=== PATIENT | female | born 1960 | race Caucasian/White ===

== ENCOUNTER 2016-08-11 21:21 | Emergency (ER) | payer OTHER ==
[~2016-08-11] VITALS: Ht 167.6 cm; Wt 62.0 kg
[~2016-08-11 21:21] MED LIST: ALPR0.5T99; HYDR12.56 PO; SERT100
[2016-08-11 21:33] VITALS: BP 133/81; PULSE 82; RESP 12; TEMP 98.4; O2SAT 99
[2016-08-11 21:39] VITALS: BP 133/81; PULSE 80
--- NOTE | 2016-08-11 21:54 | PD ---
HPI Chief Complaint: Medical Clearance Time Seen by Provider: 21:34 Travel History International Travel<30 days: No Contact w/Intl Traveler<30days: No Traveled to known affect area: No History of Present Illness HPI 55yo F with PMH of alcohol abuse was brought in under [facility] for alcohol intoxication. As per paper work, pt is intoxicated and not able to walk or stand unassisted. Pt has a hematoma on right parietal scalp and thinks she may have fallen. Pt states she drank a pint of whiskey today. Denies any complaint. Denies any headache, visual changes, chest pain, sob, n/v, abdominal pain, focal weakness or numbness. PFSH Past Medical History Anxiety: Yes Hypertension: Yes Respiratory: Yes (COPD) Past Surgical History Hysterectomy: No Joint Replacement: No Pacemaker: No Other Surgery: No Social History Alcohol Use: Yes (lately has a relasp pint a day) Tobacco Use: Yes (1 PPD) Substance Use: No Allergies-Medications (Allergen,Severity, Reaction): Coded Allergies: No Known Allergies (Verified , 02/15/13) Reported Meds & Prescriptions Reported Meds & Active Scripts Active Reported Hctz (Hydrochlorothiazide) 12.5 Mg Cap Unknown Dose PO Zoloft (Sertraline HCl) 100 Mg Tab Xanax (Alprazolam) 0.5 Mg Tab Review of Systems Except as stated in HPI: all other systems reviewed are Neg Physical Exam Narrative GENERAL: 55yo F not in distress. SKIN: Focused skin assessment warm/dry. HEAD: +5cm by 5cm right parietal scalp swelling. No active bleeding. EYES: Pupils equal and round at 3mm bilaterally. EOMI. No scleral icterus. No injection or drainage. ENT: No nasal bleeding or discharge. Mucous membranes pink and moist. NECK: No midline ttp. CARDIOVASCULAR: Regular rate and rhythm. No murmur appreciated. RESPIRATORY: No accessory muscle use. Clear to auscultation. Breath sounds equal bilaterally. GASTROINTESTINAL: Abdomen soft, non-tender, nondistended. MUSCULOSKELETAL: No obvious deformities. No clubbing. No cyanosis. No edema. NEUROLOGICAL: Awake and alert. No obvious cranial nerve deficits. Motor grossly within normal limits. Normal speech. +AOB. Pt is AAOx3. Data Data Last Documented VS Vital Signs Date Time Temp Pulse Resp B/P Pulse Ox O2 Delivery O2 Flow Rate FiO2 08/11/16 21:39 80 133/81 08/11/16 21:[address] Brain W/O Iv Contrast(Rout) (08/11/16 ) Thiamine (Vit B1) (Vitamin B1) (08/11/16 23:45) MDM Medical Decision Making Medical Screen Exam Complete: Yes Emergency Medical Condition: Yes Differential Diagnosis Alcohol use vs. ICH vs. contusion vs. concussion Narrative Course 55yo F brought in as [employer] for alcohol intoxication. Pt is AAOx3 and following commands. Pt has alcohol on breath and does admit to drinking a pint of whiskey today. Only sign of trauma on patient is swelling on right parietal scalp. Pt does not remember falling but was also intoxicated so unreliable history. CT brain showed no acute disease. No focal neurologic deficits. VS stable. Pt given thiamine. Pt is medically clear for discharge when she is able to ambulate on her own without assistance. Pt has been observed in the ED and is ambulating in the ED without assistance. Pt is clinically sober to be discharge and return precautions given. Diagnosis Primary Impression: Alcohol intoxication Qualified Code: F10.920 - Alcohol intoxication, uncomplicated Patient Instructions: General Instructions Departure Forms: Tests/Procedures Additional Instructions: Please follow up with your PMD in 3-7 days. Return to the ED if symptoms worsen. Med/Other Pt SpecificInfo: No Change to Meds Disposition: 01 DISCHARGE HOME Condition: Stable LemusBertha August 11, 2016 21:54
--- NOTE | 2016-08-11 22:41 | RADRPT ---
EXAM DATE/TIME: 08/11/2016 22:32 [facility] COMPARISON: No previous studies available for comparison. INDICATIONS : Fall. Swelling to right side of head. RADIATION DOSE: 36.73 CTDIvol (mGy) MEDICAL HISTORY : Hypertension. SURGICAL HISTORY : None. ENCOUNTER: Initial ACUITY: 1 day PAIN SCALE: 5/10 LOCATION: Right cranial TECHNIQUE: Multiple contiguous axial images were obtained of the head. Using automated exposure control and adj ustment of the mA and/or kV according to patient size, radiation dose was kept as low as reasonably a chievable to obtain optimal diagnostic quality images. FINDINGS: CEREBRUM: The ventricles are normal for age. No evidence of midline shift, mass lesion, hemorrhage or acute in farction. No extra-axial fluid collections are seen. POSTERIOR FOSSA: The cerebellum and brainstem are intact. The 4th ventricle is midline. The cerebellopontine angle i s unremarkable. EXTRACRANIAL: The visualized portion of the orbits is intact. SKULL: The calvaria is intact. No evidence of skull fracture. CONCLUSION: No acute disease. Jeffrey Hernandez Jr., MD on August 11, 2016 at 22:38 Board Certified Radiologist. This report was verified electronically.
[2016-08-11] MEDS ORDERED: THIAMINE HCL 100 MG TAB PO ONE (23:45)
== END 2016-08-12 06:24 | disposition home or self-care (01) ==
LOC: NEPD 21:21
DX: F10.920 Alcohol use, unspecified with intoxication, uncomplicated (principal); S00.03XA Contusion of scalp, initial encounter; I10 Essential (primary) hypertension; J44.9 Chronic obstructive pulmonary disease, unspecified; F17.210 Nicotine dependence, cigarettes, uncomplicated
CPT/HCPCS: 70450; 99284